=== PATIENT | female | born 1965 | race Caucasian/White ===

== ENCOUNTER 2016-08-27 22:37 | Emergency (ER) | payer BC ==
[2016-08-27 22:47] VITALS: BP 151/85
[2016-08-27] MEDS ORDERED: ONDANSETRON ODT 4 MG TAB.RAPDIS ONE (23:11)
--- NOTE | 2016-08-27 23:14 | ED.ADGEN ---
Past History Past Medical History: No Pertinent History Past Surgical History: , Hysterectomy Alcohol Use: None Drug Use: None Adult General Chief Complaint Chief Complaint Nausea vomiting and diarrhea [facility] HPI Patient is a 50-year-old female presents with acute onset nausea vomiting and diarrhea. Symptoms began earlier this morning. Reports abdominal discomfort with nausea but denies localizing pain. No fever chills sweats. No flank pain, hematuria dysuria or urinary frequency urgency reported. Other acute symptoms or complaints. Previous , hysterectomy. No prior abdominal surgeries. He had illness exposure. Review of Systems Review of Systems ROS as per HPI. Current Medications Current Medications Current Medications Medications (Trade) Dose Ordered Sig/Leonides Start Time Stop Time Status Last Admin Dose Admin Ondansetron HCl (Starter Pack - Zofran Odt) 1 startpack 1X ONCE 08/27/16 23:15 08/27/16 23:16 UNV 08/27/16 22:34 1 STARTPACK Ondansetron HCl (Zofran Odt) 8 mg 1X ONCE 08/27/16 23:15 08/27/16 23:16 UNV 08/27/16 23:13 8 MG Allergies Allergies Allergies Coded Allergies Type Severity Reaction Last Updated Verified morphine Allergy Unknown 08/27/16 Yes Physical Exam Physical Exam Constitutional: Well developed, well nourished, no acute distress, non-toxic appearance. HENT: Normocephalic, atraumatic, bilateral external ears normal, oropharynx moist, no oral exudates, nose normal. Eyes: PERRLA, EOMI, conjunctiva normal. Neck: Normal range of motion, no tenderness, supple. Cardiovascular:Heart rate regular rhythm, no murmur. Lungs & Thorax: Bilateral breath sounds clear to auscultation. Abdomen: Bowel sounds normal, soft, no tenderness. Skin: Warm, dry. Back: No tenderness. Extremities: No tenderness. Neurologic: Alert and oriented X 3, normal motor function, normal sensory function, no focal deficits noted. Psychologic: Affect normal, judgement normal, mood normal. Current Patient Data Vital Signs Vital Signs Date Time Temp Pulse Resp B/P (MAP) Pulse Ox O2 Delivery O2 Flow Rate FiO2 08/27/16 22:47 98.5 88 20 95 Room Air EKG EKG [] Radiology/Procedures Radiology/Procedures [] Course & Med Decision Making Course & Med Decision Making Pertinent Labs and Imaging studies reviewed. (See chart for details) [Abdomen soft, nonsurgical. Patient was stable vital signs. Patient requesting refill of nausea only has not interested in additional workup or services. Medication given with symptomatic improvement. Recommend supportive care with PCP follow-up should symptoms persist. Return precautions reviewed. Courtesy work note provided.] Final Impression Final Impression [1. Nausea, vomiting and diarrhea] Problems: Dragon Disclaimer Dragon Disclaimer This electronic medical record was generated, in whole or in part, using a voice recognition dictation system. ANGELICA SURESH DO Aug 27, 2016 23:13
[2016-08-27] MEDS ORDERED: ONDANSETRON ODT 4 MG TAB.RAPDIS PO ONE (23:15)
[2016-08-27] MEDS ORDERED: ONDANSETRON 4MG ODT 4TABLET STARTPACK. PO ONE ×2 (23:15→23:32)
== END 2016-08-27 23:45 | disposition home or self-care (01) ==
LOC: ER 22:37
DX: R11.2 Nausea with vomiting, unspecified (principal); R19.7 Diarrhea, unspecified; Z88.5 Allergy status to narcotic agent
CPT/HCPCS: 99283; Q0162